=== PATIENT | male | born 1990 | race Caucasian/White ===

== ENCOUNTER 2023-09-15 14:05 | Emergency (ER) | payer OTHER ==
[~2023-09-15] VITALS: Ht 172.7 cm; Wt 70.8 kg
[2023-09-15 14:32] VITALS: BP_SYST 90; PULSE 94; RESP 18; TEMP 98.3; O2SAT 99
[2023-09-15] MEDS ORDERED: SPIR25TA6 PO (15:10)
[2023-09-15] MEDS ORDERED: SPIR25TA PO (15:11)
[2023-09-15] MEDS: KETOROLAC TROMETHAMINE 60 MG/2 ML VIAL IM ONE (15:20)
[2023-09-15 16:01] VITALS: BP_SYST 98; PULSE 78; RESP 22; TEMP 98.3; O2SAT 98
== END 2023-09-15 15:15 | disposition home or self-care (01) ==
LOC: SED 14:05
DX: K74.60 Unspecified cirrhosis of liver (principal); R18.8 Other ascites
CPT/HCPCS: 99283; 96372; J1885

== ENCOUNTER 2023-09-26 11:57 | Inpatient (IN) | payer OTHER ==
[~2023-09-26] VITALS: Ht 175.3 cm; Wt 73.5 kg
[~2023-09-26 11:57] MED LIST: SPIR25TA PO; SPIR25TA6 PO
[2023-09-26 12:07] VITALS: BP_SYST 139; PULSE 115; RESP 17; TEMP 98.4; O2SAT 96
[2023-09-26 12:44] LABS: BASOPHILS # (AUTO) 0.1 K/uL (0.0-0.2); BASOPHILS % (AUTO) 0.6 % (0.0-2.0); EOSINOPHILS % (AUTO) 0.3 % (0.0-4.0); HEMATOCRIT 30.8 % (36-54); HEMOGLOBIN 10.5 g/dL (14.0-18.0); LYMPHOCYTES # (AUTO) 0.9 K/uL (1.0-5.5); LYMPHOCYTES % (AUTO) 7.2 % (20.5-51.5); MEAN CORPUSCULAR HEMOGLOBIN 35 pg (27-31); MEAN CORPUSCULAR HGB CONC 34 % (32-36); MEAN CORPUSCULAR VOLUME 101 fL (79.0-98.0); MONOCYTES # (AUTO) 0.9 K/uL (0.0-1.0); MONOCYTES % (AUTO) 7.5 % (1.7-9.3); NEUTROPHILS # (AUTO) 10.3 K/uL (1.8-7.7); NEUTROPHILS % (AUTO) 84.4 % (40.0-70.0); PLATELET COUNT (AUTO) 315 K/uL (130-430); RED BLOOD CELL COUNT(AUTO) 3.04 MIL/uL (4.2-6.2); RED CELL DISTRIBUTION WIDTH 21.1 % (9.0-15.0); WHITE BLOOD COUNT (AUTO) 12.2 K/uL (4.8-10.8)
[2023-09-26 13:00] LABS: ALBUMIN 2.5 g/dL (3.4-4.8); BILIRUBIN,DIRECT 0.6 mg/dL (0.0-0.3); CALCIUM 8.4 mg/dL (8.4-11.0); CREATININE 0.62 mg/dL (0.55-1.30); INR 1.2 (0.80-1.20); POTASSIUM 3.7 mmol/L (3.5-5.1); PROTHROMBIN TIME 12.4 SECS (9.5-12.5); TOTAL BILIRUBIN 1.1 mg/dL (0.0-1.0); TOTAL PROTEIN, SERUM 7.5 g/dL (6.4-8.3)
[2023-09-26] MEDS: MORPHINE 4 MG INJ. 4 MG/ML VIAL IVP ONE (13:35)
[2023-09-26] MEDS: CLINDAMYCIN 900 mg/50mL D5W 50 ML IV ONE (13:44)
[2023-09-26] MEDS ORDERED: MORPHINE 2 MG/ML INJ. SYRINGE IVP PRN (17:45)
[2023-09-26] MEDS: MORPHINE 4 MG INJ. 4 MG/ML VIAL IVP PRN (18:11)
[2023-09-26] MEDS: ONDANSETRON HCL 4 MG/2 ML VIAL IVP PRN (18:12)
[2023-09-26] MEDS ORDERED: NALOXONE HCL 0.4 MG/ML AMP (NARCAN) IVP PRN ×2 (22:00)
[2023-09-26] MEDS ORDERED: ACETAMINOPHEN 325 MG TABLET PO PRN (22:00)
[2023-09-26] MEDS ORDERED: HYDROcodone/ACETAMIN 5-325 MG TAB (NORCO/ VICODIN) PO PRN (22:00)
[2023-09-26] MEDS ORDERED: LORazepam 2 MG/ML VIAL IVP PRN (22:00)
[2023-09-26] MEDS: NORMAL SALINE 5 ML DISP.SYRIN IVF SCH (23:01)
[2023-09-26 23:45] VITALS: BP_SYST 128; PULSE 102; RESP 16; TEMP 98.8; O2SAT 98
[2023-09-27] VITALS (7 sets, daily range): BP systolic 119–134; PULSE 67–115; RESP 16–19; TEMP 97.8–98.4; O2SAT 96–99
[2023-09-27] MEDS: HYDROcodone/ACETAMIN 10-325 MG TAB PO PRN (01:35)
[2023-09-27] MEDS ORDERED: NALOXONE HCL 0.4 MG/ML AMP (NARCAN) IVP PRN (01:45)
[2023-09-27] MEDS: ONDANSETRON HCL 4 MG/2 ML VIAL IVP PRN (02:46)
[2023-09-27] MEDS: MORPHINE 2 MG/ML INJ. SYRINGE IVP PRN (02:55)
[2023-09-27 05:22] LABS: BASOPHILS # (AUTO) 0.1 K/uL (0.0-0.2); BASOPHILS % (AUTO) 0.9 % (0.0-2.0); EOSINOPHILS # (AUTO) 0.1 K/uL (0.0-0.4); HEMATOCRIT 29.5 % (36-54); HEMOGLOBIN 9.9 g/dL (14.0-18.0); LYMPHOCYTES # (AUTO) 0.8 K/uL (1.0-5.5); LYMPHOCYTES % (AUTO) 8.1 % (20.5-51.5); MEAN CORPUSCULAR HEMOGLOBIN 35 pg (27-31); MEAN CORPUSCULAR HGB CONC 34 % (32-36); MEAN CORPUSCULAR VOLUME 103 fL (79.0-98.0); MONOCYTES # (AUTO) 0.6 K/uL (0.0-1.0); MONOCYTES % (AUTO) 6.2 % (1.7-9.3); NEUTROPHILS # (AUTO) 8.1 K/uL (1.8-7.7); NEUTROPHILS % (AUTO) 83.8 % (40.0-70.0); PLATELET COUNT (AUTO) 267 K/uL (130-430); RED BLOOD CELL COUNT(AUTO) 2.87 MIL/uL (4.2-6.2); RED CELL DISTRIBUTION WIDTH 19.7 % (9.0-15.0); WHITE BLOOD COUNT (AUTO) 9.6 K/uL (4.8-10.8)
[2023-09-27 05:27] LABS: CREATININE 0.72 mg/dL (0.55-1.30); POTASSIUM 3.3 mmol/L (3.5-5.1)
[2023-09-27] MEDS: FUROSEMIDE 40 MG TABLET PO SCH (08:41)
[2023-09-27] MEDS: metroNIDAZOLE 500 MG TABLET PO SCH (08:41)
[2023-09-27] MEDS: SPIRONOLACTONE 50 MG TABLET (ALDACTONE) PO SCH (08:42)
[2023-09-27 08:47] LABS: ANISOCYTOSIS 1+; TARGET CELLS FEW
[2023-09-27 08:48] LABS: OVALOCYTES FEW; TEAR DROP CELLS FEW
[2023-09-27] MEDS ORDERED: SPIRONOLACTONE 25 MG TABLET (ALDACTONE) PO SCH (09:00)
[2023-09-27] MEDS: cefTRIAXone 1 GM in D5W 50 ML IV SCH (09:27)
[2023-09-27] MEDS: LACTULOSE 20 GM/30 ML UDC PO ONE (18:39)
[2023-09-27 21:45] LABS: BODY FLUID GLUCOSE 111 mg/dL; BODY FLUID TOTAL PROTEIN 2.2 g/dL
[2023-09-27 23:24] LABS: BF APPEARANCE UNSPUN SLIGHTLY CLOUDY (CLEAR); BODY FLUID SOURCE/ TYPE PARACENTESIS; SOURCE/TYPE ,BODY FLUID PARACENTESIS
[2023-09-27 23:25] LABS: APPEARANCE,SPUN,BODY FLUID HAZY (CLEAR); BODY FLUID COLOR YELLOW (LT YELLOW); BODY FLUID TOTAL VOLUME 6900 mL; NEUTROPHIL, BODY FLUID 10 %; RBC, BODY FLUID 462 /uL; WBC, BODY FLUID 197 /uL
[2023-09-27 23:26] LABS: EOSINOPHIL, BODY FLUID 0 %; LYMPHOCYTES, BODY FLUID 24 %; MONOCYTES,BODY FLUID 66 %
[2023-09-28 01:39] VITALS: BP_SYST 130; PULSE 69; RESP 16; TEMP 97.7; O2SAT 99
[2023-09-28 05:39] LABS: BASOPHILS # (AUTO) 0.1 K/uL (0.0-0.2); EOSINOPHILS # (AUTO) 0.1 K/uL (0.0-0.4); EOSINOPHILS % (AUTO) 1.2 % (0.0-4.0); HEMATOCRIT 28.2 % (36-54); HEMOGLOBIN 9.8 g/dL (14.0-18.0); LYMPHOCYTES # (AUTO) 0.9 K/uL (1.0-5.5); LYMPHOCYTES % (AUTO) 13.5 % (20.5-51.5); MEAN CORPUSCULAR HEMOGLOBIN 35 pg (27-31); MEAN CORPUSCULAR HGB CONC 35 % (32-36); MEAN CORPUSCULAR VOLUME 102 fL (79.0-98.0); MONOCYTES # (AUTO) 0.5 K/uL (0.0-1.0); MONOCYTES % (AUTO) 7.1 % (1.7-9.3); NEUTROPHILS # (AUTO) 5.3 K/uL (1.8-7.7); NEUTROPHILS % (AUTO) 77.2 % (40.0-70.0); PLATELET COUNT (AUTO) 228 K/uL (130-430); RED BLOOD CELL COUNT(AUTO) 2.78 MIL/uL (4.2-6.2); RED CELL DISTRIBUTION WIDTH 18.9 % (9.0-15.0); WHITE BLOOD COUNT (AUTO) 6.9 K/uL (4.8-10.8)
[2023-09-28 06:04] LABS: CALCIUM 7.9 mg/dL (8.4-11.0); CREATININE 0.64 mg/dL (0.55-1.30); POTASSIUM 3.7 mmol/L (3.5-5.1); TOTAL BILIRUBIN 1.2 mg/dL (0.0-1.0); TOTAL PROTEIN, SERUM 6.2 g/dL (6.4-8.3)
[2023-09-28 08:00] VITALS: BP_SYST 123; PULSE 99; RESP 18; TEMP 98.6; O2SAT 100; O2SAT 99
[2023-09-28] MEDS: DIPHENHYDRAMINE HCL 12.5 MG/5 ML UDC PO ONE (09:10)
[2023-09-28] MEDS ORDERED: TRAM50TA2 PO (09:35)
[2023-09-28] MEDS ORDERED: SPIR50TA PO (09:35)
[2023-09-28] MEDS ORDERED: TRAZ-250 PO (09:35)
[2023-09-28] MEDS ORDERED: FURO-149 PO (09:35)
[2023-09-28] MEDS ORDERED: CIPR500T5 PO (09:35)
[2023-09-28] MEDS: CLOTRIMAZOLE/BETAMET DIPROP 15 GM TUBE TP SCH (09:44)
[2023-09-28 10:47] VITALS: BP_SYST 123; PULSE 99; RESP 18; TEMP 98.6; O2SAT 100
[2023-09-28 11:36] VITALS: BP_SYST 113; PULSE 106; RESP 18; TEMP 98.6; O2SAT 96
== END 2023-09-28 13:10 | disposition home or self-care (01) | DRG 432 ==
LOC: SED 11:57 → SMU 14:07
PROVIDERS: ADMIT Preventive Medicine Preventive Medicine/Occupational Environmental Medicine; ATTEND Preventive Medicine Preventive Medicine/Occupational Environmental Medicine
PROC: 0W9G3ZZ Drainage of Peritoneal Cavity, Percutaneous Approach (ICD-10-PCS; principal; 2023-09-27)
DX: K74.60 Unspecified cirrhosis of liver (principal); E43 Unspecified severe protein-calorie malnutrition; K65.2 Spontaneous bacterial peritonitis; R18.8 Other ascites; D64.9 Anemia, unspecified; D72.829 Elevated white blood cell count, unspecified; E88.09 Other disorders of plasma-protein metabolism, not elsewhere classified; Z68.23 Body mass index [BMI] 23.0-23.9, adult
CPT/HCPCS: 36415; 49083; 80048; 80053; 80076; 82140; 82947; 83690; 84157; 85025; 85610; 85730; 87040; 89051; 89060; 99285; J0696; J2270; J2405; J3490; J7060

== ENCOUNTER 2023-12-14 08:48 | Outpatient (CLI) | payer OTHER ==
[~2023-12-14 08:48] MED LIST changes: +CIPR500T5 PO; +DICY10SO PO; +FOLI0.4T6 PO; +FURO-149 PO; -SPIR25TA PO; +SPIR50TA PO; +THIA100T70 PO; +TRAM50TA2 PO; +TRAZ-250 PO
== END 2023-12-14 21:06 | disposition home or self-care (01) ==
LOC: SUS 08:48
PROVIDERS: ATTEND Family Medicine
DX: K80.20 Calculus of gallbladder without cholecystitis without obstruction (principal); K70.31 Alcoholic cirrhosis of liver with ascites; K52.89 Other specified noninfective gastroenteritis and colitis; R16.1 Splenomegaly, not elsewhere classified
CPT/HCPCS: 76700

== ENCOUNTER 2024-01-27 02:03 | Inpatient (IN) | payer OTHER ==
[2024-01-27] VITALS (13 sets, daily range): BP systolic 99–141; PULSE 111–134; RESP 16–19; TEMP 97.3–99.6; O2SAT 95–100
[~2024-01-27] VITALS: Ht 175.3 cm; Wt 63.5 kg
[2024-01-27] MEDS: ONDANSETRON HCL 4 MG/2 ML VIAL IVP ONE (04:06)
[2024-01-27] MEDS: NACL 0.9% 1,000 ML IV ONE (04:07)
[2024-01-27] MEDS: FAMOTIDINE PF 20 MG/2 ML VIAL ONE (04:34)
[2024-01-27] MEDS: FAMOTIDINE PF 20 MG/2 ML VIAL IVP ONE (04:42)
[2024-01-27] MEDS: LORazepam 2 MG/ML VIAL IVP ONE (06:18)
[2024-01-27] MEDS ORDERED: IBUP-1969 PO (06:28)
[2024-01-27] MEDS ORDERED: IPRATROPIUM BROM 0.5 MG/2.5 ML VIAL.NEB (ATROVENT) INH PRN (07:30)
[2024-01-27] MEDS ORDERED: ALBUTEROL SULFATE 0.083% 2.5 MG/3 ML VIAL.NEB INH PRN (07:30)
[2024-01-27 07:48] LABS: BILIRUBIN,DIRECT 3.3 mg/dL (0.0-0.3); CALCIUM 8.9 mg/dL (8.4-11.0); CREATININE 0.8 mg/dL (0.55-1.30); POTASSIUM 3.8 mmol/L (3.5-5.1); TOTAL BILIRUBIN 6.9 mg/dL (0.0-1.0)
[2024-01-27 07:49] LABS: ALBUMIN 2.8 g/dL (3.4-4.8); TOTAL PROTEIN, SERUM 7.9 g/dL (6.4-8.3)
[2024-01-27 08:03] LABS: HEMATOCRIT 31.2 % (36-54); HEMOGLOBIN 10.8 g/dL (14.0-18.0); MEAN CORPUSCULAR HEMOGLOBIN 35 pg (27-31); MEAN CORPUSCULAR HGB CONC 35 % (32-36); MEAN CORPUSCULAR VOLUME 102 fL (79.0-98.0); RED BLOOD CELL COUNT(AUTO) 3.06 MIL/uL (4.2-6.2); RED CELL DISTRIBUTION WIDTH 14.9 % (9.0-15.0); WHITE BLOOD COUNT (AUTO) 5.4 K/uL (4.8-10.8)
[2024-01-27 08:04] LABS: BASOPHILS % (AUTO) 0.5 % (0.0-2.0); EOSINOPHILS % (AUTO) 0.1 % (0.0-4.0); LYMPHOCYTES # (AUTO) 0.4 K/uL (1.0-5.5); LYMPHOCYTES % (AUTO) 7.3 % (20.5-51.5); MONOCYTES # (AUTO) 0.6 K/uL (0.0-1.0); MONOCYTES % (AUTO) 10.8 % (1.7-9.3); NEUTROPHILS # (AUTO) 4.4 K/uL (1.8-7.7); NEUTROPHILS % (AUTO) 81.3 % (40.0-70.0)
[2024-01-27 08:06] LABS: PLATELET COUNT (AUTO) 41 K/uL (130-430)
[2024-01-27] MEDS: PANTOPRAZOLE SODIUM 40 MG/VIAL (PROTONIX) IVP SCH (09:00)
[2024-01-27 09:16] LABS: INR 1.6 (0.80-1.20); PROTHROMBIN TIME 16.3 SECS (9.5-12.5)
[2024-01-27] MEDS: NACL 0.9% 1,000 ML IV SCH (11:15)
[2024-01-27] MEDS: cefTRIAXone 1 GM in D5W 50 ML IV SCH (11:16)
[2024-01-27] MEDS: OCTREOTIDE ACETATE 1,250 MCG in NS 248.75 ML IV SCH (11:17)
[2024-01-27] MEDS: chlordiazePOXIDE HCL 25 MG CAPSULE PO ONE (11:39)
[2024-01-27] MEDS: THIAMINE HCL 100 MG in NS 50 ML IV ONE (12:03)
[2024-01-27 12:57] LABS: HEMATOCRIT 26.2 % (36-54); HEMOGLOBIN 9.1 g/dL (14.0-18.0)
[2024-01-27 14:33] LABS: BILIRUBIN,URINE 2+ (NEGATIVE); BLOOD, URINE 3+ (NEGATIVE); CLARITY/URINE CLEAR (CLEAR); COLOR,URINE ORANGE (YELLOW); GLUCOSE,URINE NEGATIVE (NEGATIVE); KETONES,URINE NEGATIVE (NEGATIVE); LEUKOCYTE ESTERASE ,URINE NEGATIVE (NEGATIVE); PROTEIN URINE TRACE (NEGATIVE)
[2024-01-27 14:47] LABS: BARBITURATE, URINE NEGATIVE (NEG <=200); BENZODIAZEPINE, URINE POSITIVE (NEG <=150); CANNABINOID, URINE NEGATIVE (NEG <=50); COCAINE, URINE NEGATIVE (NEG <=150); METHAMPHETAMINES SCREEN,URINE NEGATIVE (NEG <=500); OPIATE, URINE NEGATIVE (NEG <=100); PHENCYCLIDINE SCREEN,URINE NEGATIVE (NEG <=25); UR TRICYCLIC ANTIDEPRESSANTS NEGATIVE (NEG <=300); URINE AMPHETAMINE NEGATIVE (NEG <=500); URINE METHADONE NEGATIVE (NEG <=200); URINE OXYCODONE SCREEN NEGATIVE (NEG <=100)
[2024-01-27 14:55] LABS: NITRITE, URINE NEGATIVE (NEGATIVE)
[2024-01-27 14:56] LABS: BACTERIA,URINE RARE /HPF (None Seen); MUCUS,URINE None Seen /LPF (None Seen); WBC,URINE 0-3 /HPF (0-3)
[2024-01-27] MEDS: chlordiazePOXIDE HCL 25 MG CAPSULE PO SCH (15:43)
[2024-01-27] MEDS: LORazepam 2 MG/ML VIAL IVP PRN (15:44)
[2024-01-27] MEDS: METOPROLOL TARTRATE 25 MG TABLET PO ONE (17:15)
[2024-01-27] MEDS: THIAMINE HCL 100 MG in NS 50 ML IV SCH (18:00)
[2024-01-27] MEDS: LORazepam 2 MG/ML VIAL ONE (18:05)
[2024-01-27] MEDS: HALOPERIDOL LACTATE 5 MG/ML VIAL ONE (18:06)
[2024-01-27] MEDS: LORazepam 2 MG/ML VIAL IM ONE (19:08)
[2024-01-27] MEDS: HALOPERIDOL LACTATE 5 MG/ML VIAL IVP ONE (19:08)
[2024-01-27] MEDS ORDERED: METOPROLOL TARTRATE 5 MG/5 ML VIAL IVP PRN (19:32)
[2024-01-27] MEDS: BANANA BAG 1 EA, MVI 10 ML, THIAMINE HCL 100 MG, FOLIC ACID 1 MG, MAGNESIUM SULFATE 1 G... IV SCH (19:45)
[2024-01-27 20:22] LABS: PHOSPHORUS 4.3 mg/dL (2.7-4.5)
[2024-01-27 20:24] LABS: ALCOHOL, BLOOD < 3 mg/dL (<10)
[2024-01-27] MEDS: METOPROLOL TARTRATE 25 MG TABLET PO SCH (20:48)
[2024-01-27] MEDS: MAGNESIUM SULFATE/D5W 100 ML IV ONE (22:32)
[2024-01-27] MEDS: OCTREOTIDE ACETATE 200 MCG/1 ML 5ML VIAL ONE (22:35)
[2024-01-28] VITALS (24 sets, daily range): BP systolic 84–124; PULSE 83–113; RESP 15–27; TEMP 98–100.4; O2SAT 90–98
[2024-01-28 02:27] LABS: HEMATOCRIT 22.5 % (36-54); HEMOGLOBIN 8.1 g/dL (14.0-18.0)
[2024-01-28] MEDS: ACETAMINOPHEN 325 MG TABLET PO PRN (04:40)
[2024-01-28] MEDS: NACL 0.9% 1,000 ML IV ONE (06:56)
[2024-01-28 07:50] LABS: ALBUMIN 2.3 g/dL (3.4-4.8); CALCIUM 8.1 mg/dL (8.4-11.0); CREATININE 0.91 mg/dL (0.55-1.30); PHOSPHORUS 4.1 mg/dL (2.7-4.5); POTASSIUM 3.6 mmol/L (3.5-5.1); THYROID STIMULATING HORMONE 0.35 uIu/mL (0.34-4.82); TOTAL BILIRUBIN 5.8 mg/dL (0.0-1.0); TOTAL PROTEIN, SERUM 6.3 g/dL (6.4-8.3)
[2024-01-28] MEDS: ALBUMIN HUMAN 5% 500 ML IV ONE (09:15)
[2024-01-28] MEDS: FOLIC ACID 1 MG TABLET PO SCH (09:15)
[2024-01-28] MEDS: MAGNESIUM SULFATE 1 GM/2 ML VIAL ONE (09:16)
[2024-01-28] MEDS: THIAMINE HCL 200 MG/2 ML VIAL ONE (09:17)
[2024-01-28] MEDS: MIDODRINE HCL 5 MG TABLET (PROAMATINE) PO SCH (09:18)
[2024-01-28 09:45] LABS: HEMATOCRIT 24.6 % (36-54); HEMOGLOBIN 8.3 g/dL (14.0-18.0)
[2024-01-28] MEDS: THIAMINE HCL 100 MG, MAGNESIUM SULFATE 1 GM in NS 100 ML IV SCH (10:58)
[2024-01-28] MEDS: FOLIC ACID 1 MG, MVI 10 ML in NACL 0.9% 1,000 ML IV SCH (10:59)
[2024-01-28] MEDS ORDERED: NOREPINEPHRINE BITARTRATE 32 MG in NS 218 ML IV STA (11:47)
[2024-01-28] MEDS: LACTULOSE 20 GM/30 ML UDC PO ONE (12:28)
[2024-01-28] MEDS: NOREPINEPHRINE BITARTRATE 4 MG in NS 246 ML IV PRN (12:46)
[2024-01-28 14:41] LABS: HEMATOCRIT 23.6 % (36-54); HEMOGLOBIN 8.3 g/dL (14.0-18.0)
[2024-01-28] MEDS: NS IV SCH (15:21)
[2024-01-28] MEDS: THIAMINE HCL IV SCH (15:21)
[2024-01-28] MEDS: LACTULOSE 20 GM/30 ML UDC PO SCH (15:21)
[2024-01-29] VITALS (23 sets, daily range): BP systolic 97–124; PULSE 73–104; RESP 15–28; TEMP 98.3–100.4; O2SAT 90–97
[2024-01-29 06:19] LABS: BASOPHILS # (AUTO) 0.1 K/uL (0.0-0.2); BASOPHILS % (AUTO) 0.6 % (0.0-2.0); EOSINOPHILS # (AUTO) 0.2 K/uL (0.0-0.4); EOSINOPHILS % (AUTO) 1.9 % (0.0-4.0); HEMATOCRIT 24.7 % (36-54); HEMOGLOBIN 8.5 g/dL (14.0-18.0); LYMPHOCYTES # (AUTO) 1.2 K/uL (1.0-5.5); LYMPHOCYTES % (AUTO) 10.2 % (20.5-51.5); MEAN CORPUSCULAR HEMOGLOBIN 36 pg (27-31); MEAN CORPUSCULAR HGB CONC 34 % (32-36); MEAN CORPUSCULAR VOLUME 104 fL (79.0-98.0); MONOCYTES # (AUTO) 0.9 K/uL (0.0-1.0); MONOCYTES % (AUTO) 8.3 % (1.7-9.3); PLATELET COUNT (AUTO) 74 K/uL (130-430); RED BLOOD CELL COUNT(AUTO) 2.39 MIL/uL (4.2-6.2); RED CELL DISTRIBUTION WIDTH 15.2 % (9.0-15.0)
[2024-01-29 07:02] LABS: ALBUMIN 2.4 g/dL (3.4-4.8); CALCIUM 7.6 mg/dL (8.4-11.0); CREATININE 0.99 mg/dL (0.55-1.30); TOTAL BILIRUBIN 5.1 mg/dL (0.0-1.0); TOTAL PROTEIN, SERUM 6.3 g/dL (6.4-8.3)
[2024-01-29 08:12] LABS: WHITE BLOOD COUNT (AUTO) 11.4 K/uL (4.8-10.8)
[2024-01-29] MEDS: ALBUMIN HUMAN 25% 100 ML IV ONE (11:43)
[2024-01-29] MEDS: KCL 20 mEq in 100 mL (PREMIX) 200 ML IV PRN (13:22)
[2024-01-29] MEDS: chlordiazePOXIDE HCL 25 MG CAPSULE PO SCH (14:21)
[2024-01-29] MEDS: MIDODRINE HCL 5 MG TABLET (PROAMATINE) PO SCH (14:22)
[2024-01-29] MEDS: ACETAMINOPHEN 325 MG TABLET PO PRN (14:23)
[2024-01-29] MEDS: LORazepam 2 MG/ML VIAL IVP PRN (22:30)
[2024-01-30] VITALS (17 sets, daily range): BP systolic 103–137; PULSE 94–117; RESP 20–37; TEMP 97–99.4; O2SAT 91–100
[2024-01-30 04:59] LABS: BASOPHILS # (AUTO) 0.1 K/uL (0.0-0.2); BASOPHILS % (AUTO) 0.6 % (0.0-2.0); EOSINOPHILS # (AUTO) 0.1 K/uL (0.0-0.4); EOSINOPHILS % (AUTO) 0.7 % (0.0-4.0); HEMATOCRIT 22.6 % (36-54); HEMOGLOBIN 7.9 g/dL (14.0-18.0); LYMPHOCYTES # (AUTO) 0.8 K/uL (1.0-5.5); LYMPHOCYTES % (AUTO) 8.6 % (20.5-51.5); MEAN CORPUSCULAR HEMOGLOBIN 36 pg (27-31); MEAN CORPUSCULAR HGB CONC 35 % (32-36); MEAN CORPUSCULAR VOLUME 105 fL (79.0-98.0); MONOCYTES # (AUTO) 1.4 K/uL (0.0-1.0); MONOCYTES % (AUTO) 15.3 % (1.7-9.3); NEUTROPHILS # (AUTO) 6.6 K/uL (1.8-7.7); NEUTROPHILS % (AUTO) 74.8 % (40.0-70.0); PLATELET COUNT (AUTO) 77 K/uL (130-430); RED BLOOD CELL COUNT(AUTO) 2.16 MIL/uL (4.2-6.2); RED CELL DISTRIBUTION WIDTH 15.3 % (9.0-15.0); WHITE BLOOD COUNT (AUTO) 8.8 K/uL (4.8-10.8)
[2024-01-30 05:32] LABS: ALBUMIN 2.5 g/dL (3.4-4.8); CALCIUM 7.6 mg/dL (8.4-11.0); CREATININE 1.24 mg/dL (0.55-1.30); POTASSIUM 3.5 mmol/L (3.5-5.1); TOTAL PROTEIN, SERUM 6.2 g/dL (6.4-8.3)
[2024-01-30] MEDS: LORazepam 1 MG TABLET PO PRN (08:32)
[2024-01-30] MEDS: metroNIDAZOLE 500 MG TABLET PO SCH (20:54)
[2024-01-31] VITALS (7 sets, daily range): BP systolic 107–136; PULSE 62–106; RESP 16–18; TEMP 97–98.6; O2SAT 93–97
[2024-01-31] MEDS: ONDANSETRON HCL 4 MG/2 ML VIAL IVP PRN (00:51)
[2024-01-31] MEDS: LORazepam 2 MG/ML VIAL IVP PRN (06:33)
[2024-01-31 09:31] LABS: CALCIUM 7.9 mg/dL (8.4-11.0); CREATININE 0.81 mg/dL (0.55-1.30); POTASSIUM 3.3 mmol/L (3.5-5.1)
[2024-01-31] MEDS: MORPHINE 2 MG/ML INJ. SYRINGE IVP PRN (09:31)
[2024-01-31 09:55] LABS: BASOPHILS % (AUTO) 0.4 % (0.0-2.0); EOSINOPHILS # (AUTO) 0.1 K/uL (0.0-0.4); EOSINOPHILS % (AUTO) 1.4 % (0.0-4.0); HEMATOCRIT 24.9 % (36-54); HEMOGLOBIN 8.9 g/dL (14.0-18.0); LYMPHOCYTES # (AUTO) 0.5 K/uL (1.0-5.5); LYMPHOCYTES % (AUTO) 8.9 % (20.5-51.5); MEAN CORPUSCULAR HEMOGLOBIN 37 pg (27-31); MEAN CORPUSCULAR HGB CONC 36 % (32-36); MEAN CORPUSCULAR VOLUME 104 fL (79.0-98.0); MONOCYTES # (AUTO) 0.8 K/uL (0.0-1.0); MONOCYTES % (AUTO) 13.9 % (1.7-9.3); NEUTROPHILS # (AUTO) 4.5 K/uL (1.8-7.7); NEUTROPHILS % (AUTO) 75.4 % (40.0-70.0); PLATELET COUNT (AUTO) 103 K/uL (130-430); RED BLOOD CELL COUNT(AUTO) 2.38 MIL/uL (4.2-6.2); RED CELL DISTRIBUTION WIDTH 15.8 % (9.0-15.0); WHITE BLOOD COUNT (AUTO) 5.9 K/uL (4.8-10.8)
[2024-01-31] MEDS ORDERED: ALBU2.5V7 INH (15:28)
[2024-01-31] MEDS ORDERED: MIDO10TA PO (15:28)
[2024-01-31] MEDS ORDERED: RIFA550T5 PO (15:28)
[2024-01-31] MEDS ORDERED: CHLO25CA10 PO (15:28)
[2024-01-31] MEDS ORDERED: LACT10SO6 PO (15:28)
[2024-01-31] MEDS ORDERED: AMOX-423 PO (15:28)
[2024-01-31] MEDS ORDERED: ACET325T PO (15:28)
[2024-01-31] MEDS ORDERED: PRO40 PO (15:28)
== END 2024-01-31 16:05 | disposition home or self-care (01) | DRG 871 ==
LOC: SED 02:03 → STU 06:04 → SIC 18:13 → STU 01-30 17:49
PROVIDERS: ADMIT Internal Medicine; ATTEND Internal Medicine
PROC: 30233R1 Transfusion of Nonautologous Platelets into Peripheral Vein, Percutaneous Approach (ICD-10-PCS; principal; 2024-01-27)
DX: A41.9 Sepsis, unspecified organism (principal); E43 Unspecified severe protein-calorie malnutrition; R65.21 Severe sepsis with septic shock; J69.0 Pneumonitis due to inhalation of food and vomit; D62 Acute posthemorrhagic anemia; E87.1 Hypo-osmolality and hyponatremia; E72.20 Disorder of urea cycle metabolism, unspecified; F10.139 Alcohol abuse with withdrawal, unspecified; K92.0 Hematemesis; D69.6 Thrombocytopenia, unspecified; K70.31 Alcoholic cirrhosis of liver with ascites; Y90.9 Presence of alcohol in blood, level not specified; K76.82 Hepatic encephalopathy; F17.200 Nicotine dependence, unspecified, uncomplicated; Z68.20 Body mass index [BMI] 20.0-20.9, adult
CPT/HCPCS: 36415; 71045; 76604; 76705; 80048; 80053; 80074; 80076; 80307; 81000; 81001; 81015; 82140; 83690; 83735; 84100; 84443; 84484; 85018; 85025; 85610; 86886; 86900; 86901; 87081; 93005; 93306; 94070; 94760; 96375; 99285; G0378; G0482; J0696; J1630; J2060; J2270; J2354; J2405; J2470; J3411; J3475; J3480; J3490; J7030; J7050; J7060; P9034; P9041

== ENCOUNTER 2024-02-13 05:43 | Inpatient (IN) | payer OTHER ==
[~2024-02-13] VITALS: Ht 175.3 cm; Wt 67.8 kg
[~2024-02-13 05:43] MED LIST changes: +ACET325T PO; +ALBU2.5V7 INH; +AMOX-423 PO; +CHLO25CA10 PO; -CIPR500T5 PO; -DICY10SO PO; -FURO-149 PO; +LACT10SO6 PO; +MIDO10TA PO; +PRO40 PO; +RIFA550T5 PO; -SPIR25TA6 PO; -SPIR50TA PO; -TRAM50TA2 PO
[2024-02-13] MEDS: PANTOPRAZOLE SODIUM 40 MG/VIAL (PROTONIX) IVP ONE (06:26)
[2024-02-13] MEDS ORDERED: ALBUMIN HUMAN 25% 0 ML IV ONE (06:44)
[2024-02-13] MEDS: ALBUMIN HUMAN 5% 250 ML IV ONE (06:57)
[2024-02-13 07:04] LABS: BASOPHILS # (AUTO) 0.3 K/uL (0.0-0.2); BASOPHILS % (AUTO) 1.5 % (0.0-2.0); INR 1.5 (0.80-1.20); LYMPHOCYTES # (AUTO) 1.4 K/uL (1.0-5.5); LYMPHOCYTES % (AUTO) 6.8 % (20.5-51.5); MEAN CORPUSCULAR HEMOGLOBIN 35 pg (27-31); MEAN CORPUSCULAR HGB CONC 33 % (32-36); MEAN CORPUSCULAR VOLUME 108 fL (79.0-98.0); MONOCYTES # (AUTO) 1.6 K/uL (0.0-1.0); MONOCYTES % (AUTO) 7.9 % (1.7-9.3); NEUTROPHILS # (AUTO) 16.9 K/uL (1.8-7.7); NEUTROPHILS % (AUTO) 83.8 % (40.0-70.0); PLATELET COUNT (AUTO) 304 K/uL (130-430); PROTHROMBIN TIME 15.4 SECS (9.5-12.5); RED CELL DISTRIBUTION WIDTH 17.3 % (9.0-15.0); WHITE BLOOD COUNT (AUTO) 20.2 K/uL (4.8-10.8)
[2024-02-13 07:06] LABS: ALANINE AMINOTRANSFERASE 25 U/L (12-78); ANION GAP 18 (5-15); ASPARTATE AMINOTRANSFERASE 112 U/L (10-37); BILIRUBIN,DIRECT 1.5 mg/dL (0.0-0.3); CALCIUM 7.7 mg/dL (8.4-11.0); CARBON DIOXIDE 20 mmol/L (23-29); CHLORIDE 104 mmol/L (98-107); CREATININE 1.21 mg/dL (0.55-1.30); GFR AFRICAN AMERICAN 88 mL/min (>90); GLUCOSE 149 mg/dL (74-106); LIPASE 30 U/L (16-77); POTASSIUM 4.9 mmol/L (3.5-5.1); SODIUM SERUM 142 mmol/L (136-145); TOTAL BILIRUBIN 2.4 mg/dL (0.0-1.0); TOTAL PROTEIN, SERUM 6.1 g/dL (6.4-8.3); UREA NITROGEN, BLOOD 31 mg/dL (8-21)
[2024-02-13 07:23] LABS: GFR NON AFRICAN-AMERICAN 73 mL/min (>90)
[2024-02-13 07:31] LABS: HEMATOCRIT 18.4 % (36-54)
[2024-02-13] MEDS ORDERED: PIPERACILLIN/TAZOBACTAM 4.5 GM/VIAL (ZOSYN) IV ONE ×2 (07:58→19:42)
[2024-02-13] MEDS: PIPERACILLIN/TAZO 4.5GM/DEX-IS 100 ML IV SCH (08:00)
[2024-02-13] MEDS: NS 1000 ML IV.SOLN IV ONE (08:01)
[2024-02-13] MEDS: MORPHINE 2 MG/ML INJ. SYRINGE IVP ONE (09:13)
[2024-02-13] MEDS: ONDANSETRON HCL 4 MG/2 ML VIAL IVP PRN (10:57)
[2024-02-13] MEDS ORDERED: NOREPINEPHRINE BITARTRATE 8 MG in NS 242 ML IV PRN ×2 (11:15→14:15)
[2024-02-13] MEDS ORDERED: LORazepam 2 MG/ML VIAL IV PRN (11:30)
[2024-02-13] MEDS ORDERED: VANCOMYCIN HCL 1000 MG/VIAL IV ONE (11:32)
[2024-02-13] MEDS ORDERED: PANTOPRAZOLE SODIUM 40 MG/VIAL (PROTONIX) ONE ×2 (11:32→20:25)
[2024-02-13] MEDS: VANCOMYCIN HCL 1,000 MG in NS 250 ML IV ONE (11:44)
[2024-02-13] MEDS: PANTOPRAZOLE SODIUM 40 MG in NS 50 ML IV SCH (11:44)
[2024-02-13] MEDS: OCTREOTIDE ACETATE 500 MCG in NS 99.5 ML IV SCH (12:54)
[2024-02-13] MEDS: NACL 0.9% 1,000 ML IV ONE (13:00)
[2024-02-13 19:03] LABS: HEMOGLOBIN 5.9 g/dL (14.0-18.0)
[2024-02-13 19:04] LABS: HEMATOCRIT 17.9 % (36-54)
[2024-02-13] MEDS: NACL 0.9% 1,000 ML IV SCH (19:27)
[2024-02-13] MEDS ORDERED: traZODone HCL 50 MG TABLET (DESYREL) PO SCH (19:30)
[2024-02-13 19:45] LABS: BILIRUBIN,URINE 1+ (NEGATIVE); COLOR,URINE YELLOW (YELLOW); GLUCOSE,URINE NEGATIVE (NEGATIVE); KETONES,URINE TRACE (NEGATIVE); LEUKOCYTE ESTERASE ,URINE NEGATIVE (NEGATIVE); NITRITE, URINE NEGATIVE (NEGATIVE); PROTEIN URINE NEGATIVE (NEGATIVE)
[2024-02-13 20:03] LABS: BARBITURATE, URINE NEGATIVE (NEG <=200); BENZODIAZEPINE, URINE POSITIVE (NEG <=150); CANNABINOID, URINE NEGATIVE (NEG <=50); COCAINE, URINE NEGATIVE (NEG <=150); METHAMPHETAMINES SCREEN,URINE NEGATIVE (NEG <=500); OPIATE, URINE POSITIVE (NEG <=100); PHENCYCLIDINE SCREEN,URINE NEGATIVE (NEG <=25); UR TRICYCLIC ANTIDEPRESSANTS NEGATIVE (NEG <=300); URINE AMPHETAMINE NEGATIVE (NEG <=500); URINE METHADONE NEGATIVE (NEG <=200); URINE OXYCODONE SCREEN NEGATIVE (NEG <=100)
[2024-02-13 20:04] LABS: BLOOD, URINE TRACE (NEGATIVE); CLARITY/URINE SLIGHTLY HAZY (CLEAR)
[2024-02-13 20:13] LABS: BACTERIA,URINE FEW /HPF (None Seen); CALCIUM OXALATE CRYSTALS,UR 0-10 /HPF (None Seen); FINE GRANULAR CASTS,URINE 20 /LPF (None Seen); MUCUS,URINE 1+ /LPF (None Seen); RBC,URINE 0-3 /HPF (0-3); WBC,URINE 0-3 /HPF (0-3)
[2024-02-13] MEDS: LACTULOSE 20 GM/30 ML UDC PO SCH (20:31)
[2024-02-13] MEDS: chlordiazePOXIDE HCL 25 MG CAPSULE PO SCH (21:00)
[2024-02-13] MEDS: PIPERACILLIN/TAZOBACTAM 4.5 GM/VIAL (ZOSYN) IV ONE (22:52)
[2024-02-13] MEDS ORDERED: NALOXONE HCL 0.4 MG/ML AMP (NARCAN) IVP PRN (23:45)
[2024-02-14] VITALS (26 sets, daily range): BP systolic 90–134; PULSE 78–119; RESP 10–19; TEMP 96.8–98.8; O2SAT 90–100
[2024-02-14] MEDS: MORPHINE 2 MG/ML INJ. SYRINGE IVP PRN ×2 (00:09→21:16)
[2024-02-14] MEDS: PANTOPRAZOLE SODIUM 40 MG/VIAL (PROTONIX) ONE ×2 (00:13→05:11)
[2024-02-14 03:01] LABS: BASOPHILS # (AUTO) 0.1 K/uL (0.0-0.2); EOSINOPHILS # (AUTO) 0.1 K/uL (0.0-0.4); RED CELL DISTRIBUTION WIDTH 21.4 % (9.0-15.0); WHITE BLOOD COUNT (AUTO) 10.8 K/uL (4.8-10.8)
[2024-02-14 03:14] LABS: BASOPHILS % (AUTO) 1.3 % (0.0-2.0); EOSINOPHILS % (AUTO) 1.2 % (0.0-4.0); LYMPHOCYTES # (AUTO) 1.7 K/uL (1.0-5.5); LYMPHOCYTES % (AUTO) 15.5 % (20.5-51.5); MEAN CORPUSCULAR HEMOGLOBIN 34 pg (27-31); MEAN CORPUSCULAR HGB CONC 35 % (32-36); MEAN CORPUSCULAR VOLUME 97 fL (79.0-98.0); MONOCYTES % (AUTO) 8.9 % (1.7-9.3); NEUTROPHILS # (AUTO) 7.9 K/uL (1.8-7.7); NEUTROPHILS % (AUTO) 73.1 % (40.0-70.0); PLATELET COUNT (AUTO) 140 K/uL (130-430)
[2024-02-14 03:26] LABS: RED BLOOD CELL COUNT(AUTO) 1.71 MIL/uL (4.2-6.2)
[2024-02-14 03:28] LABS: HEMATOCRIT 16.6 % (36-54); HEMOGLOBIN 5.7 g/dL (14.0-18.0)
[2024-02-14] MEDS: OCTREOTIDE ACETATE 200 MCG/1 ML 5ML VIAL ONE (03:38)
[2024-02-14] MEDS: NOREPINEPHRINE 4 MG/4 ML VIAL IV ONE (05:11)
[2024-02-14] MEDS: OCTREOTIDE ACETATE 1,250 MCG in NS 250 ML IV SCH (08:30)
[2024-02-14] MEDS: NEPHROVITE, (FOLIC ACID/VITAMIN B COMP W-C 1 TAB) PO SCH (09:19)
[2024-02-14] MEDS: SPIRONOLACTONE 25 MG TABLET (ALDACTONE) PO SCH (09:20)
[2024-02-14] MEDS: FUROSEMIDE 40 MG TABLET PO ONE (09:20)
[2024-02-14 09:33] LABS: MEAN CORPUSCULAR HGB CONC 35 % (32-36); WHITE BLOOD COUNT (AUTO) 8.3 K/uL (4.8-10.8)
[2024-02-14 09:41] LABS: MEAN CORPUSCULAR HEMOGLOBIN 34 pg (27-31); MEAN CORPUSCULAR VOLUME 98 fL (79.0-98.0); PLATELET COUNT (AUTO) 118 K/uL (130-430); RED BLOOD CELL COUNT(AUTO) 1.98 MIL/uL (4.2-6.2); RED CELL DISTRIBUTION WIDTH 20.8 % (9.0-15.0)
[2024-02-14 09:42] LABS: HEMATOCRIT 19.3 % (36-54); HEMOGLOBIN 6.7 g/dL (14.0-18.0)
[2024-02-14 09:52] LABS: ALBUMIN 1.9 g/dL (3.4-4.8); CREATININE 1.73 mg/dL (0.55-1.30); POTASSIUM 4.1 mmol/L (3.5-5.1); TOTAL BILIRUBIN 3.2 mg/dL (0.0-1.0); TOTAL PROTEIN, SERUM 5.2 g/dL (6.4-8.3)
[2024-02-14] MEDS: MEPERIDINE 100 MG INJ. 100 MG/ML VIAL ONE ×2 (10:06→10:42)
[2024-02-14] MEDS: DIPHENHYDRAMINE INJ 50 MG/ML VIAL ONE (10:06)
[2024-02-14] MEDS: MIDAZOLAM HCL 5 MG/5 ML VIAL ONE (10:07)
[2024-02-14] MEDS: BENZOCAINE 20% 0.5mL UD SPRAY MM ONE (10:27)
[2024-02-14] MEDS: SIMETHICONE 40 MG/0.6 ML ML ONE (10:27)
[2024-02-14 12:06] LABS: ANISOCYTOSIS 1+; BAND % (MANUAL) 3 % (0-6); BASOPHILS % (MANUAL) 0 % (0-2); EOSINOPHILS % (MANUAL) 2 % (0-7); LYMPHOCYTES % (MANUAL) 13 % (20-46); MONOCYTES % (MANUAL) 4 % (0-11); PLATELET ESTIMATE DECREASED (ADEQUATE)
[2024-02-14 13:46] LABS: INR 1.4 (0.80-1.20); PROTHROMBIN TIME 14.5 SECS (9.5-12.5)
[2024-02-14 14:39] LABS: HEMATOCRIT 25.8 % (36-54); HEMOGLOBIN 8.8 g/dL (14.0-18.0)
[2024-02-14] MEDS: LIDOCAINE 1% 10 MG/ML, 20 ML MDV INJ ONE ×2 (15:24)
[2024-02-14] MEDS: ALBUMIN HUMAN 25% 50 ML IV SCH (16:46)
[2024-02-14] MEDS: MIDODRINE HCL 5 MG TABLET (PROAMATINE) PO SCH (21:11)
[2024-02-14] MEDS: metroNIDAZOLE 500 mg/NS 100 ML IV SCH (21:11)
[2024-02-14 22:35] LABS: BODY FLUID SOURCE/ TYPE PARACENTESIS; SOURCE/TYPE ,BODY FLUID PARACENTESIS
[2024-02-14 22:36] LABS: APPEARANCE,SPUN,BODY FLUID HAZY (CLEAR); BF APPEARANCE UNSPUN SLIGHTLY CLOUDY (CLEAR); BODY FLUID COLOR YELLOW (LT YELLOW); BODY FLUID TOTAL VOLUME 2500 mL; RBC, BODY FLUID 197 /uL; WBC, BODY FLUID 126 /uL
[2024-02-14 23:10] LABS: LYMPHOCYTES, BODY FLUID 27 %; MONOCYTES,BODY FLUID 69 %; NEUTROPHIL, BODY FLUID 4 %
[2024-02-14 23:11] LABS: EOSINOPHIL, BODY FLUID 0 %
[2024-02-15] VITALS (26 sets, daily range): BP systolic 103–135; PULSE 75–92; RESP 7–21; TEMP 97.4–98.5; O2SAT 94–100
[2024-02-15 06:50] LABS: INR 1.4 (0.80-1.20); PROTHROMBIN TIME 14.3 SECS (9.5-12.5)
[2024-02-15 07:05] LABS: BASOPHILS # (AUTO) 0.1 K/uL (0.0-0.2); EOSINOPHILS # (AUTO) 0.2 K/uL (0.0-0.4); EOSINOPHILS % (AUTO) 3.1 % (0.0-4.0); HEMATOCRIT 24.8 % (36-54); HEMOGLOBIN 8.4 g/dL (14.0-18.0); LYMPHOCYTES % (AUTO) 16.9 % (20.5-51.5); MEAN CORPUSCULAR HEMOGLOBIN 33 pg (27-31); MEAN CORPUSCULAR HGB CONC 34 % (32-36); MEAN CORPUSCULAR VOLUME 97 fL (79.0-98.0); MONOCYTES # (AUTO) 0.4 K/uL (0.0-1.0); MONOCYTES % (AUTO) 7.3 % (1.7-9.3); NEUTROPHILS # (AUTO) 4.3 K/uL (1.8-7.7); NEUTROPHILS % (AUTO) 70.7 % (40.0-70.0); PLATELET COUNT (AUTO) 112 K/uL (130-430); RED BLOOD CELL COUNT(AUTO) 2.54 MIL/uL (4.2-6.2); RED CELL DISTRIBUTION WIDTH 19.2 % (9.0-15.0)
[2024-02-15 07:28] LABS: ALBUMIN 2.2 g/dL (3.4-4.8); CREATININE 1.48 mg/dL (0.55-1.30); POTASSIUM 4.1 mmol/L (3.5-5.1); TOTAL BILIRUBIN 2.2 mg/dL (0.0-1.0); TOTAL PROTEIN, SERUM 5.9 g/dL (6.4-8.3)
[2024-02-15] MEDS: FUROSEMIDE 40 MG/4 ML VIAL IVP SCH (09:25)
[2024-02-15] MEDS ORDERED: MAGNESIUM SULFATE 50 ML IV ONE (13:30)
[2024-02-16] VITALS (12 sets, daily range): BP systolic 108–137; PULSE 72–95; RESP 11–19; TEMP 97.5–98.6; O2SAT 95–99
[2024-02-16 07:02] LABS: ALBUMIN 2.3 g/dL (3.4-4.8); CREATININE 0.99 mg/dL (0.55-1.30); POTASSIUM 4.1 mmol/L (3.5-5.1); TOTAL BILIRUBIN 1.4 mg/dL (0.0-1.0); TOTAL PROTEIN, SERUM 5.9 g/dL (6.4-8.3)
[2024-02-16 07:09] LABS: BASOPHILS # (AUTO) 0.1 K/uL (0.0-0.2); BASOPHILS % (AUTO) 1.1 % (0.0-2.0); EOSINOPHILS # (AUTO) 0.2 K/uL (0.0-0.4); HEMATOCRIT 24.8 % (36-54); HEMOGLOBIN 8.3 g/dL (14.0-18.0); LYMPHOCYTES # (AUTO) 0.9 K/uL (1.0-5.5); LYMPHOCYTES % (AUTO) 14.6 % (20.5-51.5); MEAN CORPUSCULAR HEMOGLOBIN 33 pg (27-31); MEAN CORPUSCULAR HGB CONC 33 % (32-36); MEAN CORPUSCULAR VOLUME 98 fL (79.0-98.0); MONOCYTES # (AUTO) 0.4 K/uL (0.0-1.0); MONOCYTES % (AUTO) 7.2 % (1.7-9.3); NEUTROPHILS # (AUTO) 4.4 K/uL (1.8-7.7); NEUTROPHILS % (AUTO) 74.1 % (40.0-70.0); PLATELET COUNT (AUTO) 111 K/uL (130-430); RED BLOOD CELL COUNT(AUTO) 2.53 MIL/uL (4.2-6.2); RED CELL DISTRIBUTION WIDTH 19.5 % (9.0-15.0)
[2024-02-16] MEDS ORDERED: PANTOPRAZOLE SODIUM 40 MG TAB PO SCH (09:00)
[2024-02-16] MEDS: CARVEDILOL 6.25 MG TABLET (COREG) PO SCH (10:18)
[2024-02-16] MEDS: PANTOPRAZOLE SODIUM 40 MG TAB PO SCH (10:18)
[2024-02-17] VITALS: BP_SYST 112; PULSE 72; RESP 16; TEMP 98.2; O2SAT 98
[2024-02-17] MEDS: ALBUTEROL SULFATE 0.083% 2.5 MG/3 ML VIAL.NEB INH PRN (07:43)
[2024-02-17 08:05] VITALS: BP_SYST 115; PULSE 76; RESP 18; TEMP 98.1; O2SAT 97; O2SAT 99
[2024-02-17] MEDS: FUROSEMIDE 20 MG TABLET PO SCH (08:13)
[2024-02-17] MEDS: SPIRONOLACTONE 50 MG TABLET (ALDACTONE) PO SCH (08:13)
[2024-02-17 09:14] LABS: BASOPHILS % (AUTO) 0.9 % (0.0-2.0); EOSINOPHILS # (AUTO) 0.1 K/uL (0.0-0.4); HEMATOCRIT 23.3 % (36-54); HEMOGLOBIN 7.8 g/dL (14.0-18.0); LYMPHOCYTES # (AUTO) 0.7 K/uL (1.0-5.5); LYMPHOCYTES % (AUTO) 13.6 % (20.5-51.5); MEAN CORPUSCULAR HEMOGLOBIN 33 pg (27-31); MEAN CORPUSCULAR HGB CONC 33 % (32-36); MEAN CORPUSCULAR VOLUME 98 fL (79.0-98.0); MONOCYTES # (AUTO) 0.5 K/uL (0.0-1.0); MONOCYTES % (AUTO) 9.6 % (1.7-9.3); NEUTROPHILS # (AUTO) 3.9 K/uL (1.8-7.7); NEUTROPHILS % (AUTO) 73.9 % (40.0-70.0); PLATELET COUNT (AUTO) 98 K/uL (130-430); RED BLOOD CELL COUNT(AUTO) 2.39 MIL/uL (4.2-6.2); RED CELL DISTRIBUTION WIDTH 20.5 % (9.0-15.0); WHITE BLOOD COUNT (AUTO) 5.3 K/uL (4.8-10.8)
[2024-02-17 09:33] LABS: ALBUMIN 2.1 g/dL (3.4-4.8); CALCIUM 7.6 mg/dL (8.4-11.0); CREATININE 0.98 mg/dL (0.55-1.30); POTASSIUM 4.7 mmol/L (3.5-5.1); TOTAL BILIRUBIN 1.5 mg/dL (0.0-1.0); TOTAL PROTEIN, SERUM 5.6 g/dL (6.4-8.3)
[2024-02-17] MEDS ORDERED: FURO-150 PO (10:56)
[2024-02-17] MEDS ORDERED: SPIR50TA PO (10:56)
[2024-02-17] MEDS ORDERED: COR6.25 PO (10:56)
[2024-02-17 11:05] VITALS: BP_SYST 101; PULSE 82; RESP 14; TEMP 98.8; O2SAT 99
[2024-02-17] MEDS ORDERED: GABA-529 PO (12:39)
[2024-02-17] MEDS ORDERED: NEU300 PO (12:39)
[2024-02-17 12:41] VITALS: BP_SYST 122; PULSE 77; RESP 18; TEMP 98.6; O2SAT 98
== END 2024-02-17 13:37 | disposition home or self-care (01) | DRG 871 ==
LOC: SED 05:43 → STU 09:42 → SIC 19:54 → STU 22:02 → SIC 02-14 01:47 → STU 02-16 13:11
PROVIDERS: ADMIT Student in an Organized Health Care Education/Training Program; ATTEND Student in an Organized Health Care Education/Training Program
PROC: 30233N1 Transfusion of Nonautologous Red Blood Cells into Peripheral Vein, Percutaneous Approach (ICD-10-PCS; principal; 2024-02-13)
PROC: 06L38CZ Occlusion of Esophageal Vein with Extraluminal Device, Via Natural or Artificial Opening Endoscopic (ICD-10-PCS; 2024-02-14)
PROC: 0W9G3ZZ Drainage of Peritoneal Cavity, Percutaneous Approach (ICD-10-PCS; 2024-02-14)
PROC: 0DB78ZX Excision of Stomach, Pylorus, Via Natural or Artificial Opening Endoscopic, Diagnostic (ICD-10-PCS; 2024-02-14 10:15)
DX: A41.9 Sepsis, unspecified organism (principal); R57.8 Other shock; R65.21 Severe sepsis with septic shock; D68.9 Coagulation defect, unspecified; D62 Acute posthemorrhagic anemia; N39.0 Urinary tract infection, site not specified; K92.2 Gastrointestinal hemorrhage, unspecified; K52.9 Noninfective gastroenteritis and colitis, unspecified; K70.31 Alcoholic cirrhosis of liver with ascites; K31.89 Other diseases of stomach and duodenum; D69.6 Thrombocytopenia, unspecified; J44.9 Chronic obstructive pulmonary disease, unspecified; K70.30 Alcoholic cirrhosis of liver without ascites; K76.82 Hepatic encephalopathy; Z79.899 Other long term (current) drug therapy; Z79.51 Long term (current) use of inhaled steroids
CPT/HCPCS: 36415; 43239; 43244; 49083; 71045; 76770; 80048; 80053; 80076; 80307; 81000; 81001; 81015; 82042; 82140; 82570; 82947; 83605; 83690; 84157; 84302; 84484; 85007; 85018; 85025; 85027; 85610; 85730; 86886; 86900; 86901; 86920; 87040; 87070; 87081; 88108; 88305; 88312; 88313; 89051; 89060; 93005; 99291; G0378; J0696; J1200; J1940; J2001; J2175; J2250; J2270; J2354; J2405; J2470; J2543; J3370; J3490; J7050; J7060; P9021; P9041; P9046